=== PATIENT | female | born 1995 | race Caucasian/White ===

== ENCOUNTER 2017-10-03 20:16 | Emergency (ER) | payer OTHER ==
[2017-10-03] MEDS ORDERED: MOTRIN PO ONE ×2 (23:01→23:03)
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
[2017-10-04 00:57] VITALS: BP 112/73
== END 2017-10-04 00:47 | disposition home or self-care (01) ==
LOC: ED 20:16
DX: M54.6 Pain in thoracic spine (principal); V89.2XXA Person injured in unspecified motor-vehicle accident, traffic, initial encounter
CPT/HCPCS: 99282